=== PATIENT | male | born 1955 | race Caucasian/White ===

== ENCOUNTER 2021-12-01 09:02 | Day surgery (SDC) | payer BC ==
[2021-12-01] VITALS (7 sets, daily range): BP systolic 116–122; BP diastolic 72–87
[~2021-12-01] VITALS: Ht 175.3 cm; Wt 72.3 kg
[~2021-12-01 09:02] MED LIST: CHOL400T57 PO; LACT1CAP75 PO; ceFAZolin inj. 2,000 MG in dextrose 5%-water 100 ML IV ONE; famotidine 20mg tablet PO ONE; ringers solution, lacted 1,000 ML IV SCH
[2021-12-01 10:21] LABS: BASOPHILS % (AUTO) 0.3 % (0-1); EOSINOPHILS # (AUTO) 0.1 X10'3 (0-0.9); EOSINOPHILS % (AUTO) 1.2 % (0-6); LYMPHOCYTES # (AUTO) 1.6 X10'3 (1.1-4.8); LYMPHOCYTES % (AUTO) 21.6 % (21-51); MEAN CORPUSCULAR HEMOGLOBIN 27.1 PG (27.0-31.0); MEAN CORPUSCULAR HGB CONC 32.7 g/dL (33.0-36.5); MEAN CORPUSCULAR VOLUME 82.8 FL (78-98); MEAN PLATELET VOLUME 7.9 FL (7.4-10.4); MONOCYTES # (AUTO) 0.6 X10'3 (0-0.9); MONOCYTES % (AUTO) 7.8 % (2-12); NEUTROPHILS # (AUTO) 5.3 X10'3 (1.8-7.7); NEUTROPHILS % (AUTO) 69.1 % (42-75); PRE OP HEMATOCRIT 37.1 % (42.0-52.0); PRE OP HEMOGLOBIN 12.1 g/dL (14.0-17.9); PRE OP PLATELET COUNT 263 X10'3 (140-440); RED BLOOD COUNT 4.47 X10'6 (4.70-6.10); RED CELL DISTRIBUTION WIDTH 16.5 % (11.5-14.5)
[2021-12-01 10:28] LABS: ALBUMIN 2.6 G/DL (3.4-5.0); ALBUMIN/GLOBULIN RATIO 0.7 (1.1-1.5); ALKALINE PHOSPHATASE 76 IU/L (46-116); BLOOD UREA NITROGEN 16 MG/DL (7-18); BUN/CREATININE RATIO 14.4 (5.4-32.0); CALCIUM 8.4 MG/DL (8.5-10.1); CHLORIDE 108 MMOL/L (99-107); CREATININE 1.11 MG/DL (0.60-1.10); PRE OP ALT 16 U/L (30-65); PRE OP ANION GAP 5 (8-16); PRE OP AST 15 U/L (10-37); PRE OP BILIRUB, TOTAL 0.3 MG/DL (0.0-1.0); PRE OP GLUCOSE 92 MG/DL (70-104); PRE OP POTASSIUM 3.7 MMOL/L (3.4-5.1); PRE OP SODIUM 140 MMOL/L (135-145); TOTAL CARBON DIOXIDE 27.1 MMOL/L (24-32); TOTAL PROTEIN 6.3 G/DL (6.4-8.2); eGFR 67 ML/MIN
[2021-12-01] MEDS ORDERED: BUPIVAcaine/PF 2.5 mg/ml (0.25%) 30ml vial ONE (10:55)
[2021-12-01] MEDS ORDERED: LIDOcaine 1% 30ml preserv. free vial ONE (10:55)
[2021-12-01] MEDS ORDERED: fentaNYL/PF 50MCG/1 ML 2ML syringe ONE (11:15)
[2021-12-01] MEDS ORDERED: midazolam 1 mg/ML 2ml injection ONE (11:16)
[2021-12-01] MEDS ORDERED: propofol inj 20 ML IV ONE (11:20)
[2021-12-01] MEDS ORDERED: bacitracin 15gm ointment TP ONE (11:46)
--- NOTE | 2021-12-01 11:58 | NUR ---
Received from OR via [facility], accompanied by Anesthesiologist DR ENRIQUEZ and report given by Anesthesiologist AND SYSTEMS DEVELOPMENT CONSULTANT. PT DROWSY, DENIES PAIN. PT W/ATHLETIC SUPPORT ON W/SMALL GAUZE AND OINTMENT COVERING SMALL INCISIONS. Addendum: 12/01/21 at 1213 by Bella Paz RN Amended: Links added.
[2021-12-01] MEDS ORDERED: oxyCODONE/APAP 5-325mg tablet PO PRN (12:10)
--- NOTE | 2021-12-01 12:48 | NUR ---
PT UP AND ABLE TO AMBULATE SAFELY, DENIES PAIN. D/C INSTRUCTIONS GIVEN AND GONE OVER W/PT WHO VERBALIZED UNDERSTANDING. PT D/CD TO HOME VIA W/C TO PRIVATE VEHICLE W/O INCIDENT. Addendum: 12/01/21 at 1300 by Bella Paz RN Amended: Links added.
== END 2021-12-01 12:48 | disposition home or self-care (01) ==
LOC: PAS 09:02
PROVIDERS: ATTEND Surgery
DX: Z30.2 Encounter for sterilization (principal); Z79.899 Other long term (current) drug therapy; Z98.890 Other specified postprocedural states
CPT/HCPCS: 36415; 55250; 80053; 82948; 85025; 93005; J0690; J2250; J2704; J3010; J3490; J7030; J7060; J7120; Z7506; Z7512; A4215; A4618; A7000